=== PATIENT | male | born 1950 | race Caucasian/White ===

== ENCOUNTER 2022-10-07 05:24 | Day surgery (SDC) | payer OTHER ==
[~2022-10-07] VITALS: Ht 182.9 cm; Wt 103.6 kg
[2022-10-07] VITALS (11 sets, daily range): BP systolic 133–159; BP diastolic 47–65; PULSE 64–99; TEMP 97.8–98.3
[2022-10-07] MEDS ORDERED: HYZAAR 25 MG-101 TAB PO (06:09)
[2022-10-07] MEDS ORDERED: ZYLOPRIM 100MG100 MG PO (06:10)
[2022-10-07] MEDS ORDERED: LIPITOR 40MG TA40 MG PO (06:11)
[2022-10-07] MEDS ORDERED: PYRIDIUM 100MG100 MG PO (08:20)
--- NOTE | 2022-10-08 01:36 | NUR ---
SHIFT REPORT FROM [facility]. PATIENT IN BED ON ROOM ENTRY. ALERT AND ORIENTED. HS MEDS PER EMAR. DENIES PAIN. ALBRIGHT TO DD WITH PINK URINE OUTPUT. CALL LIGHT IN REACH.
[2022-10-08 03:35] VITALS: BP 137/60; PULSE 72; TEMP 97.6
[2022-10-08 08:27] VITALS: BP 140/54; PULSE 73; TEMP 97.5
--- NOTE | 2022-10-08 09:28 | NUR ---
Initial visit; Patient thanked Mobile Therapist for looking in on him and offering God's blessings and to keep him in her prayers.
--- NOTE | 2022-10-08 09:30 | NUR ---
Patient requesting AM medications be given after fine is removed.
--- NOTE | 2022-10-08 10:10 | NUR ---
SW met with the patient to discuss discharge plan. The patient lives in [place] with his , Salma (ph#[phone]). He reports independence with ADLs and does not have any DME. The patient's receives primary care at the [facility] and he [facility] his [facility] from [facility]. The patient does not have a DPOA-HC in EMR, but he states that he does have one completed and that it designates his daughter, Cristina Johnson. The patient plans to return home with his upon discharge. No additional needs at this time. *Discharge plan: home with *
--- NOTE | 2022-10-08 11:15 | NUR ---
@ 0900 visited with patient about Mitomycin Instillation into Bladder. Gave patient information packet and discussed side effects and after care. Patient verbalized understanding and had no furter questions. Consent signed. Fine clamped and Mitomycin instilled per [employer] techin[employer]. Patient tolerated procedure well. Told patient it is to instill for 2 hours. But if it became intolerable pressure for patient to let his nurse know and she would call this nurse. Recieved a call from Leonor at 1050 that patient was very uncomfortable. @ 1100 released fine. Patient drained 500 ml of clear urine without any difficultly. Fine discontinued. Reminded patient again of after care. Double flused urine and disposed of supplies as per protocal. Told patient that when he urinates in bathroom to call his nurse for verification of clearness of urine
[2022-10-08 12:00] VITALS: BP 149/64; PULSE 77; TEMP 98.6
--- NOTE | 2022-10-08 13:00 | NUR ---
Patient states he voided but flushed it. Urinal given with instruction to call when urinates again so we can discharge after.
--- NOTE | 2022-10-08 15:11 | NUR ---
Bladder scan done at this time. Only reading 75mls. Will continue to monitor.
--- NOTE | 2022-10-08 16:00 | NUR ---
Patient voided x1 unmeasured-x1 measured 200mls-clear yellow urine without difficulty. Discharge instructions given both verbal and handwritten. Discussed f/u appt, s/s of infection, home medications and when to report to the hospital. Verbalizes understanding. INT To right hand DCd-cath intact. Escorted off kwon in stable condition.
== END 2022-10-08 16:15 | disposition home or self-care (01) ==
LOC: SDCO 05:24 → SURG 09:10 → SDCO 10-08 16:15
DX: C67.9 Malignant neoplasm of bladder, unspecified (principal); G47.33 Obstructive sleep apnea (adult) (pediatric)
CPT/HCPCS: OP; J0360; J0690; J1100; J2405; J2704; J2765; J3010; J7120; J9280; Q9967